=== PATIENT | female | born 1955 | race American Indian/Alaskan Native ===

== ENCOUNTER 2017-02-16 10:15 | Outpatient (CLI) | payer OTHER ==
--- NOTE | 2017-02-16 11:25 | Mammography Report ---
BILATERAL MAMMOGRAM: FINDINGS: The breast tissue is heterogeneously dense, which could obscure detection of small masses (approximately 50%-75% glandular). No mass, distortion, suspicious calcification, or skin change is seen. There is no significant change when compared to her prior examination in January 2016. CAD was utilized. IMPRESSION: Negative mammogram. There is no mammographic evidence of malignancy. RECOMMENDATION: Follow-up per ACS guidelines. BI-RADS CATEGORY: 1 = Negative ACR BI-RADS MAMMOGRAPHIC CODES: 0 = Needs additional imaging evaluation; 1 = Negative; 2 = Benign; 3 = Probably benign; 4 = Suspicious; 5 = Malignant; 6 = Known biopsy-proven malignancy COMMENT: 1. Dense breast tissue, i.e., adenosis, fibrocystic changes, etc., may obscure an underlying neoplasm. 2. Approximately 10% of cancers are not detected with mammography. 3. A negative mammography report should not delay biopsy if a clinically suspicious mass is present. COMMENT: Patient follow-up letters are generated in [facility].
== END 2017-02-16 10:16 | disposition home or self-care (01) ==
LOC: MAMMO 10:15
PROVIDERS: ATTEND Internal Medicine
DX: Z12.31 Encounter for screening mammogram for malignant neoplasm of breast (principal)
CPT/HCPCS: 77067; G0202

== ENCOUNTER 2017-05-11 08:48 | Outpatient (CLI) | payer OTHER ==
--- NOTE | 2017-05-11 10:04 | XRay Report ---
RIGHT KNEE RADIOGRAPHS INDICATION: Knee pain. COMPARISON: None similar. FINDINGS: AP, lateral, tunnel and sunrise views of the right knee demonstrate intact articulation. No significant degenerative spurring. No suprapatellar effusion. CONCLUSION: No acute right knee radiographic abnormality. Thank you for the opportunity to participate in this patient's care.
== END 2017-05-11 08:49 | disposition home or self-care (01) ==
LOC: SPVIMAG 08:48
PROVIDERS: ATTEND Orthopaedic Surgery
DX: M25.561 Pain in right knee (principal)

== ENCOUNTER 2019-07-25 08:55 | Outpatient (CLI) | payer OTHER ==
--- NOTE | 2019-07-25 12:44 | Mammography Report ---
DIGITAL SCREENING MAMMOGRAM WITH CAD, 07/25/2019 INDICATION: Routine screening mammography. TECHNIQUE: Digital right 2D mammography was obtained in the craniocaudal and mediolateral oblique pr ojections. This examination was interpreted with the benefit of Computer-Aided Detection analysis. COMPARISON: 07/15/2018 FINDINGS: Breast Density: The breasts are heterogeneously dense, which may obscure small masses. A left asymmetry on the CC view requires additional imaging. No architectural distortion or suspiciou s calcifications. Bilateral benign arterial calcifications. There is no evidence of dominant mass, neri spicious calcifications or architectural distortion in either breast. IMPRESSION: Left asymmetry requiring additional imaging. Recommend recall for left lateral and spot c ompression CC views and left breast ultrasound if needed. Follow up recommendation: Special View: Spot Category 0: Incomplete. Needs additional imaging evaluation and/or prior mammograms for comparison. A "normal" or negative report should not discourage follow up or biopsy of a clinically significant f inding. A written summary of these findings will be mailed to the patient. The patient will be entered into a mammography reporting system which will generate a reminder letter for the patient's next appointmen t at the appropriate interval. The [employer] recommends yearly mammograms starting at age 40 and continuing as l jovanni as a woman is in good health. Breast MRI is recommended for women with an approximate 20-25% or greater lifetime risk of breast cancer, including women with a strong family history of breast or ova donny cancer or who have been treated for Hodgkin's disease. Signer Name: Wiley Zarate MD Signed: 07/25/2019 12:39 PM Workstation Name: [id number]
== END 2019-07-25 08:56 | disposition home or self-care (01) ==
LOC: SPVWC 08:55
PROVIDERS: ATTEND Internal Medicine
DX: Z12.31 Encounter for screening mammogram for malignant neoplasm of breast (principal)
CPT/HCPCS: 77067

== ENCOUNTER 2019-08-15 08:06 | Outpatient (CLI) | payer OTHER ==
--- NOTE | 2019-08-15 10:08 | XRay Report ---
LEFT WRIST 2 VIEWS INDICATION: LEFT WRIST PAIN. COMPARISON: None. IMPRESSION: Borderline bone mineralization. Minimal osteoarthritic changes are identified at the lef t wrist. No acute osseous findings or soft tissue abnormality. LEFT HAND 2 VIEWS INDICATION: LEFT WRIST PAIN. COMPARISON: None. IMPRESSION: Borderline bone mineralization. No acute osseous or soft tissue abnormality. No signif icant DJD. Signer Name: Willis Courtney Jr, MD Signed: 08/15/2019 10:04 AM Workstation Name: [id number]
--- NOTE | 2019-08-15 11:21 | Mammography Report ---
LEFT DIGITAL DIAGNOSTIC MAMMOGRAM WITH CAD 08/15/2019 LEFT COMPLETE BREAST ULTRASOUND INDICATION: Recall to evaluate asymmetry on the CC view. ABNORMAL MAMMOGRAM TECHNIQUE: Digital left mammographic imaging was performed. Spot compression views were obtained. Th is examination was interpreted with the benefit of Computer-Aided Detection (CAD) analysis. COMPARISON: 07/25/2019 FINDINGS: Breast Density: The breast is heterogeneously dense, which may obscure small masses. MAMMOGRAPHIC FINDINGS: ML, rolled CC and spot compression CC views were were performed. Partial effac ement of asymmetry on the spot image. Other views are negative. ULTRASOUND FINDINGS: Complete sonographic evaluation of all 4 quadrants and retroareolar region was p erformed. Ultrasound of the left breast demonstrated normal structures with no mass, cyst or shadow ing. IMPRESSION: No mammographic evidence of malignancy and negative left breast ultrasound. Follow up recommendation: Routine yearly BI-RADS Category 2: Benign. A "normal" or negative report should not discourage follow up or biopsy of a clinically significant f inding. A written summary of these findings will be mailed to the patient. The patient will be entered into a mammography reporting system which will generate a reminder letter for the patient's next appointmen t at the appropriate interval. According to the [employer], yearly mammograms are recommended starting at age 40 and continuing as long as a woman is in good health. Breast MRI is recommended for women with an izabela roximately 20-25% or greater lifetime risk of breast cancer, including women with a strong family his tory of breast or ovarian cancer and women who have been treated for Hodgkin's disease. Signer Name: Wiley Zarate MD Signed: 08/15/2019 11:16 AM Workstation Name: [id number]
--- NOTE | 2019-08-15 11:43 | Ultrasound Report ---
LEFT DIGITAL DIAGNOSTIC MAMMOGRAM WITH CAD 08/15/2019 LEFT COMPLETE BREAST ULTRASOUND INDICATION: Recall to evaluate asymmetry on the CC view. ABNORMAL MAMMOGRAM TECHNIQUE: Digital left mammographic imaging was performed. Spot compression views were obtained. Thi s examination was interpreted with the benefit of Computer-Aided Detection (CAD) analysis. COMPARISON: 07/25/2019 FINDINGS: Breast Density: The breast is heterogeneously dense, which may obscure small masses. MAMMOGRAPHIC FINDINGS: ML, rolled CC and spot compression CC views were were performed. Partial effac ement of asymmetry on the spot image. Other views are negative. ULTRASOUND FINDINGS: Complete sonographic evaluation of all 4 quadrants and retroareolar region was p erformed. Ultrasound of the left breast demonstrated normal structures with no mass, cyst or shadowin g. IMPRESSION: No mammographic evidence of malignancy and negative left breast ultrasound. Follow up recommendation: Routine yearly BI-RADS Category 2: Benign. A "normal" or negative report should not discourage follow up or biopsy of a clinically significant f inding. A written summary of these findings will be mailed to the patient. The patient will be entered into a mammography reporting system which will generate a reminder letter for the patient's next appointmen t at the appropriate interval. According to the [employer], yearly mammograms are recommended starting at age 40 and continuing as long as a woman is in good health. Breast MRI is recommended for women with an appr oximately 20-25% or greater lifetime risk of breast cancer, including women with a strong family hist ory of breast or ovarian cancer and women who have been treated for Hodgkin's disease. Signer Name: Wiley Zarate MD Signed: 08/15/2019 11:38 AM Workstation Name: [id number]
--- NOTE | 2019-08-15 16:21 | Mammography Report ---
BONE DEXA CLINICAL: Postmenopausal. 1.014 TECHNIQUE: 2 site bone DEXA performed on an Hologic scanner. FINDINGS: The average BMD of the lumbar spine L1-L4 is 1.014g/cm squared with a T score of -1.2 and a Z score o f +0.7. The average total BMD of the left hip is 0.894 g/cm squared with a T score of -0.9and a Z score of +0 .1. The left femoral neck BMD is 0.713 g/cm squared with a T score of -1.7 and a Z score of -0.4. IMPRESSION: 1. WHO classification: Osteopenia with increased fracture risk based on spine measurements. 2. WHO classification Osteopenia with increased fracture risk based on left femoral neck measurements . RECOMMENDATION: Clinical correlation and routine screening. Definitions: BMD equal bone mineral density T score = BMD related to peak bone mass of young adult ([place] expressed an standard deviation) Z score = age-matched BMD expressed in SD World health organization (WHO) diagnostic criteria Normal T score greater than equal to 1 standard deviation Osteopenia T score between -1 and -2.4 standard deviation Osteoporosis T score -2.5 standard deviation or below. Note: BMD is not the only risk factor for fracture; also consider factors such as the patient's age, risk of falling, previous osteoporotic fracture, family history of osteoporotic fractures, current sm oker and low body weight. Z scores are not calculated if greater than 80 years of age. Signer Name: Wiley Zarate MD Signed: 08/15/2019 4:17 PM Workstation Name: [id number]
== END 2019-08-15 08:07 | disposition home or self-care (01) ==
LOC: MAMMO 08:06
PROVIDERS: ATTEND Internal Medicine
DX: M19.032 Primary osteoarthritis, left wrist (principal); M79.642 Pain in left hand; N64.89 Other specified disorders of breast; M85.88 Other specified disorders of bone density and structure, other site
CPT/HCPCS: 77080